=== PATIENT | female | born 1985 | race Caucasian/White ===

== ENCOUNTER 2024-06-05 18:11 | Outpatient (CLI) | payer MEDICARE, OTHER, SELFPAY ==
[2024-06-05 19:03] LABS: Basophils # 0.1 K/mm3 (0-0.2); Basophils % 0.6 % (0.1-2.0); Eosinophils # 0.1 K/mm3 (0.0-0.4); Eosinophils % 0.8 % (0.1-12.0); Hematocrit 40.7 % (37.0-47.0); Hemoglobin 13.5 g/dL (12.2-16.2); Lymphocytes # 2.3 K/mm3 (0.7-4.5); Lymphocytes % 27.7 % (10-50); Mean Corpuscular HGB Conc 33.2 g/dL (31.8-35.4); Mean Corpuscular Hemoglobin 32.7 pg (27.0-31.2); Mean Corpuscular Volume 98.5 fl (81-99); Monocytes # 0.4 K/mm3 (0.1-1.0); Neutrophils # 5.5 K/mm3 (1.8-7.8); Neutrophils % 65.8 % (37.0-80.0); Platelet Count 359 K/mm3 (142-424); Red Blood Count 4.13 M/mm3 (4.20-5.40); Red Cell Distribution Width 12.5 % (11.5-17.5); White Blood Count 8.4 K/mm3 (4.8-10.8)
[2024-06-05 20:39] LABS: Alanine Aminotransferase 49 U/L (12-78); Albumin Level 3.9 g/dl (3.5-5.0); Albumin/Globulin Ratio 1.4 (1.1-1.8); Alkaline Phosphatase 126 U/L (38-126); Anion Gap 14.5 mEq/L (5-15); Aspartate Amino Transferase 38 U/L (14-36); Bilirubin,Total 0.5 mg/dl (0.2-1.3); Blood Urea Nitrogen 27 mg/dl (7-17); Calcium 9.7 mg/dl (8.4-10.2); Carbon Dioxide 23 mmol/L (22.0-30.0); Chloride 105 mmol/L (98-107); Chol/HDL Ratio 4.3 (1-3.5); Cholesterol 162 mg/dl (140-200); Estimated Glomerular Filt Rate 79 ml/min (>60); GFR (African American) 96 ML/MIN (>60); Globulin 2.7 g/dL (1.3-3.2); Glucose 106 mg/dl (74-100); HDL Cholesterol 38 mg/dl (40-60); Potassium 3.5 mmoL/L (3.5-5.1); Sodium 139 mmol/L (136-145); Total Protein,Serum 6.6 g/dl (6.3-8.2); Triglycerides 170 mg/dl (30-150); VLDL Cholesterol 34 mg/dL (0-40)
[2024-06-05 20:47] LABS: HIV Combo NEGATIVE (Negative)
[2024-06-05 20:50] LABS: Direct LDL Cholesterol 89.17 mg/dL (100-129)
[2024-06-05 21:28] LABS: Vitamin B12 290 pg/mL (239-931)
[2024-06-05 22:10] LABS: Ferritin 175 ng/ml (6.24-137)
[2024-06-07 09:08] LABS: HCV Ab Non Reactive (Non Reactive)
== END 2024-06-05 23:59 | disposition home or self-care (01) ==
LOC: LAB.DROPOF 18:13
PROVIDERS: PCP Family Medicine; Visit Provider Family Medicine
DX: D64.9 Anemia, unspecified (principal); E78.5 Hyperlipidemia, unspecified; I10 Essential (primary) hypertension; Z87.891 Personal history of nicotine dependence; Z68.32 Body mass index [BMI] 32.0-32.9, adult; E66.9 Obesity, unspecified
CPT/HCPCS: 80053; 80061; 82607; 82728; 85025; 86803; 87389

== ENCOUNTER 2025-01-07 14:02 | Outpatient (CLI) | payer MEDICARE, OTHER, SELFPAY ==
[2025-01-07 19:50] LABS: Chloride 107 mmol/L (98-107)
[2025-01-07 19:51] LABS: Albumin Level 3.3 g/dl (3.5-5.0); Potassium 4.3 mmoL/L (3.5-5.1); Sodium 136 mmol/L (136-145)
[2025-01-07 19:54] LABS: Alanine Aminotransferase 22 U/L (12-78); Albumin/Globulin Ratio 0.9 (1.1-1.8); Alkaline Phosphatase 103 U/L (38-126); Anion Gap 10.3 mEq/L (5-15); Aspartate Amino Transferase 18 U/L (14-36); Bilirubin,Total 0.3 mg/dl (0.2-1.3); Calcium 9.2 mg/dl (8.4-10.2); Carbon Dioxide 23 mmol/L (22.0-30.0); Cholesterol 146 mg/dl (140-200); Globulin 3.6 g/dL (1.3-3.2); Glucose 111 mg/dl (74-100); HDL Cholesterol 47 mg/dl (40-60); Total Protein,Serum 6.9 g/dl (6.3-8.2); Triglycerides 104 mg/dl (30-150)
[2025-01-07 19:58] LABS: Blood Urea Nitrogen 18 mg/dl (7-17)
[2025-01-07 19:59] LABS: Creatinine,Serum 0.70 mg/dl (0.52-1.04); Estimated Glomerular Filt Rate 92 ml/min (>60); GFR (African American) 111 ML/MIN (>60)
== END 2025-01-07 23:59 | disposition home or self-care (01) ==
LOC: LAB.DROPOF 01-08 10:09
PROVIDERS: PCP Family Medicine; Visit Provider Family Medicine
DX: E78.5 Hyperlipidemia, unspecified (principal); I10 Essential (primary) hypertension
CPT/HCPCS: 80053; 80061

== ENCOUNTER 2025-01-18 10:04 | Outpatient (CLI) | payer MEDICARE, OTHER, SELFPAY ==
--- NOTE | 2025-01-18 10:04 | XR_ITS ---
FINAL REPORT CLINICAL HISTORY: knee pain COMPARISON: None FINDINGS: Four views of the right knee were obtained. There is no acute fracture or dislocation. The joint spaces are well preserved. There is no acute soft tissue abnormality. IMPRESSION: No acute abnormality identified. Reviewed, Interpreted and Dictated by Josefina Oliver MD Transcribed by Ruchi Tucker Authenticated and [facility]
== END 2025-01-18 23:59 ==
LOC: RAD 10:04
PROVIDERS: Visit Provider Physician Assistant
DX: M25.561 Pain in right knee (principal); M25.562 Pain in left knee
CPT/HCPCS: 73562

== ENCOUNTER 2025-01-20 03:02 | Emergency (ER) | payer MEDICARE, OTHER, SELFPAY ==
[2025-01-20 03:09] VITALS: BP 128/90; PULSE 70; RESP 14; TEMP 36.6; O2SAT 99; BMI 32.9
--- NOTE | 2025-01-20 03:12 | HMH.EDGENADL ---
Discharge Plan Disposition Patient Disposition: Home, Self-Care Prescriptions Prescriptions: No Action albuterol sulfate 90 mcg/actuation aerosol powdr breath activated 1 inh inhalation Q4-6H PRN (Reason: shortness of breath or wheezing) Qty: 3 1RF cyclobenzaprine 10 mg tablet 10 mg PO HS Qty: 90 1RF docusate sodium 100 mg capsule 100 mg PO DAILY Qty: 90 1RF hydrochlorothiazide 25 mg tablet 25 mg PO DAILY Qty: 90 1RF loratadine [Allergy Relief (loratadine)] 10 mg tablet,disintegrating 10 mg PO DAILY Qty: 90 1RF ondansetron 4 mg tablet,disintegrating 4 mg PO Q8H PRN (Reason: nausea) Qty: 30 2RF paroxetine HCl 20 mg tablet 20 mg PO DAILY Qty: 90 1RF propranolol 10 mg tablet 10 mg PO BID Qty: 180 1RF diclofenac sodium [Voltaren Arthritis Pain] 1 % gel 2 g topical QID Qty: 100 2RF Rx Instructions: apply to single elbow, wrist or hand; for hand includes palm/fingers/back of hand triamcinolone acetonide 0.5 % cream 1 applic topical BID Qty: 15 2RF Rx Instructions: apply bid prn to rash on forearms pravastatin 20 mg tablet 20 mg PO DAILY Qty: 90 1RF omeprazole 20 mg capsule,delayed release(DR/EC) 20 mg PO DAILY Qty: 90 1RF ciprofloxacin-hydrocortisone 0.2-1 % drops,suspension 3 drp otic (ear) BID Qty: 10 0RF acetic acid 2 % solution 3 drp otic (ear) Q6H Qty: 15 0RF Referrals Follow up/Referrals: Jeffery Birch MD [Primary Care Provider, Family Practice] - See instructions Activity Restrictions/Add. Instructions Additional Instructions/Restrictions: Please follow-up with your primary care provider. Please return to the emergency department if you develop any new or worsening symptoms or become concerned for your health. Clinical Impressions Clinical Impression: Fullness in left ear Print Language Print Language: Eritrean Discharge ED Provider: Ronaldo Sandoval General Adult HPI General Chief complaint: Ear Stated complaint: taking ear drops, ears clogged, minor bleeding Time Seen by Provider: 01/20/25 03:05 History of Present Illness HPI narrative: 40-year-old female with history of COPD, intellectual disability, hypertension hyperlipidemia presents for concerns about her left ear. She reports that she has used some drops that she has previously given and feels like her ear is clogged and full. She denies any fever. Reports no concerns with the other ear. Denies any recent infection. Symptoms started shortly prior to arrival. Related Data Previous Rx's ?Medication ?Instructions ?Recorded albuterol sulfate 90 mcg/actuation 1 inh inhalation Q4-6H PRN 07/07/24 breath activated powder inhaler shortness of breath or wheezing #3 ea cyclobenzaprine 10 mg tablet 10 mg PO HS #90 tabs 07/07/24 docusate sodium 100 mg capsule 100 mg PO DAILY #90 caps 07/07/24 hydrochlorothiazide 25 mg tablet 25 mg PO DAILY #90 tabs 07/07/24 loratadine 10 mg disintegrating 10 mg PO DAILY #90 tabs 07/07/24 tablet (Allergy Relief (loratadine)) ondansetron 4 mg disintegrating 4 mg PO Q8H PRN nausea #30 tabs 07/07/24 tablet paroxetine HCl 20 mg tablet 20 mg PO DAILY #90 tabs 07/07/24 propranolol 10 mg tablet 10 mg PO BID #180 tabs 07/07/24 pravastatin 20 mg tablet 20 mg PO DAILY #90 tabs 09/18/24 triamcinolone acetonide 0.5 % 1 applic topical BID #15 grams 01/07/25 topical cream ciprofloxacin 0.2 %-hydrocortisone 3 drp otic (ear) BID #10 mL 01/09/25 1 % ear drops,suspension omeprazole 20 mg capsule,delayed 20 mg PO DAILY #90 caps 01/09/25 release acetic acid 2 % ear solution 3 drp otic (ear) Q6H #15 mL 01/12/25 diclofenac sodium 1 % topical gel 2 g topical QID #100 grams 01/18/25 (Voltaren Arthritis Pain) Allergies Allergy/AdvReac Type Severity Reaction Status Date / Time aspirin Allergy Mild Verified 01/18/25 10:45 ibuprofen AdvReac Verified 01/18/25 10:45 [facility] Disclaimer: The information contained in this section may have been updated after the patient was seen, as this information can be updated by other users. Medical History Rash and nonspecific skin eruption Breast cancer screening by mammogram Dysuria GE reflux COPD (chronic obstructive pulmonary disease) Edentulous Right knee pain Mood disorder Anemia Intellectual disability Hyperlipidemia Hypertension Surgical History History of cholecystectomy H/O: hysterectomy Social History Smoking Status: Current every day smoker alcohol intake: never current occupational status: disabled Travel in the last 8 weeks?: None Other Medical History Have you received the Pneumonia Vaccine: No ROS Obtained: Yes All systems reviewed & no additional complaints except as documented Physical Exam General General appearance: alert and in no apparent distress Head Head exam: atraumatic and normocephalic Eye Eye exam: Present normal appearance, PERRL and EOMI ENT ENT exam: Present normal oropharynx, TM's normal bilaterally (Normal TMs and EACs bilaterally without obstructing earwax or signs of infection) and normal external ear exam Neck Neck exam: Present normal inspection and full ROM Chest Chest inspection: Present normal inspection and symmetric chest wall rise; Absent tenderness Respiratory Respiratory exam: Present normal lung sounds bilaterally; Absent respiratory distress Cardiovascular Cardiovascular exam: Present regular rate and normal rhythm Abdominal Exam Abdominal exam: Present soft; Absent distention, tenderness or guarding Extremities Exam Extremities exam: Present normal inspection; Absent edema or joint swelling Back Exam Back exam: Present normal inspection; Absent tenderness Neurological Exam Neurological exam: Present alert and oriented X3; Absent motor sensory deficit Psychiatric Psychiatric exam: Present normal affect and normal mood Skin Skin exam: Present warm, dry and normal color Lymphatic Lymphatic Findings: no adenopathy Medical Decision Making Medical Records Medical records reviewed: Yes I reviewed the patient's medical records. Screening: Per USPSTF and CDC recommendations, given the prevalence of disease in our region, it is our hospital?s policy to screen for HIV and viral Hepatitis for all patients aged 18 and over and those with ongoing risk factors. Caesar Inquiry Pt receiving controlled substance: No Caesar was queried for this patient: No Vital Signs: 01/20/25 03:09 01/20/25 03:15 Temperature 97.9 F 97.9 F Temperature Source Oral Pulse Rate 70 Pulse Rate [Left] 70 Respiratory Rate 14 14 Blood Pressure 128/90 Blood Pressure [Right Arm] 128/90 Blood Pressure Mean [Right Arm] 102 Blood Pressure Source Automatic Cuff Blood Pressure Source [Right Arm] Automatic Cuff Blood Pressure Position Sitting Blood Pressure Position [Right Arm] Sitting 02 Sat by Pulse Oximetry 99 Oxygen Delivery Method Room Air Room Air Lab Data Lab results reviewed: Yes I reviewed the patient's lab results. Medical Decision Narrative: 40-year-old female with history of intellectual disability, COPD, hypertension hyperlipidemia presents with concern for fullness in her left ear.. History was obtained via interactive discussion with patient, family. On arrival, patient is [afebrile, hemodynamically stable, satting appropriately, alert, oriented x4, GCS 15], moving all extremities spontaneously. Full physical exam performed and significant for clear TMs bilaterally, clear EACs bilaterally Differential includes but is not limited to otitis media, otitis externa, ear foreign body, impacted earwax. Patient's exam is completely benign. Low concern for emergent pathology at this time. Patient was discharged in stable condition with return precautions Procedures Risk/Benefits of Procedure(s) Were Explained: Yes Critical Care Critical Care Time Critical Care Time: No
[2025-01-20 03:15] VITALS: BP 128/90; PULSE 70; RESP 14; TEMP 36.6; O2SAT 99
== END 2025-01-20 03:16 | disposition home or self-care (01) ==
PROVIDERS: Emergency Provider Emergency Medicine; PCP Family Medicine
DX: H93.8X2 Other specified disorders of left ear (principal)
CPT/HCPCS: 99282

== ENCOUNTER 2025-02-02 15:39 | Emergency (ER) | payer MEDICARE, OTHER, SELFPAY ==
--- NOTE | 2025-02-02 16:10 | PC.NURSE ---
Notified by registration that patient was leaving to go to the [facility]
== END 2025-02-02 16:12 | disposition left against medical advice (07) ==
PROVIDERS: Emergency Provider Student in an Organized Health Care Education/Training Program; PCP Family Medicine
DX: Z53.21 Procedure and treatment not carried out due to patient leaving prior to being seen by health care provider (principal)
CPT/HCPCS: 99211

== ENCOUNTER 2025-02-22 13:47 | Outpatient (CLI) | payer MEDICARE, OTHER, SELFPAY ==
--- NOTE | 2025-02-22 13:48 | XR_ITS ---
FINAL REPORT CLINICAL HISTORY: right knee pain COMPARISON: None FINDINGS: 4 views of the right knee were obtained. There is no acute fracture or dislocation. The joint spaces are well preserved. There is no acute soft tissue abnormality. IMPRESSION: No acute abnormality identified. Reviewed, Interpreted and Dictated by Josefina Oliver MD Transcribed by Ruchi Tucker Authenticated and [facility]
== END 2025-02-22 23:59 | disposition home or self-care (01) ==
LOC: RAD 13:48
PROVIDERS: Visit Provider Physician Assistant
DX: M25.561 Pain in right knee (principal)
CPT/HCPCS: 73562

== ENCOUNTER 2025-03-03 13:18 | Outpatient (RCR) | payer MEDICARE, OTHER, SELFPAY | END 2025-03-03 23:59 | disposition home or self-care (01) | LOC: PT 13:18 | PROVIDERS: Visit Provider Physician Assistant | DX: M25.561 Pain in right knee (principal) | CPT/HCPCS: 97760 ==

== ENCOUNTER 2025-03-04 10:45 | Outpatient (CLI) | payer MEDICARE, OTHER, SELFPAY ==
--- NOTE | 2025-03-04 11:00 | MM_ITS ---
PROCEDURE INFORMATION: Exam: MG Bilateral Screening 3D Mammography Exam date and time: 03/04/2025 10:49 AM Age: 40 years old Clinical indication: Screening examination TECHNIQUE: Imaging protocol: Bilateral Screening tomosynthesis and 2D mammography including computer-aided detection (CAD) when performed. COMPARISON: No relevant prior studies available. FINDINGS: MAMMOGRAPHY: Breast composition: There are scattered areas of fibroglandular density. Mass: 1 cm questioned mass right breast roughly 11 o'clock middle depth. Architectural distortion: None. Calcifications: No suspicious calcifications. Asymmetric density: None. Skin thickening: None. Axillary adenopathy: None. IMPRESSION: Questioned right breast mass.Recommend right breast diagnostic mammogram including spot compression views of the right breast in the CC and MLO projections, a full 90 degree lateral view, and right breast ultrasound for further evaluation. ASSESSMENT: BI-RADS Category 0: Incomplete- Need Additional Imaging Evaluation.
== END 2025-03-04 23:59 | disposition home or self-care (01) ==
LOC: RAD 10:45
PROVIDERS: PCP Family Medicine; Visit Provider Family Medicine
DX: Z12.31 Encounter for screening mammogram for malignant neoplasm of breast (principal); R92.323 Mammographic fibroglandular density, bilateral breasts; R92.8 Other abnormal and inconclusive findings on diagnostic imaging of breast
CPT/HCPCS: 77063; 77067

== ENCOUNTER 2025-03-15 13:39 | Outpatient (CLI) | payer MEDICARE, OTHER, SELFPAY ==
--- NOTE | 2025-03-15 13:45 | MR_ITS ---
FINAL REPORT TECHNIQUE: Multiplanar and multisequence imaging the right knee was obtained without contrast. CLINICAL HISTORY: right knee pain, pops and cracks FINDINGS: Bones: There is no acute fracture or marrow edema. The joint space is preserved. There are no full thickness cartilage defects. Menisci: There is a ramp tear at the posterior horn of the medial meniscus with associated parameniscal cyst measuring 27 mm in axial dimension and 23 mm on coronal imaging. Anterior horn and lateral meniscus are intact. Ligaments: No cruciate or collateral ligament tear is present. Tendons/Muscles: The quadriceps and patellar tendons are within normal limits. The biceps femoris tendon and iliotibial tract are intact. The popliteus tendon is normal. Other: There is a very small amount of joint fluid which is likely physiologic. Remaining soft tissues are normal. IMPRESSION: Tear of the posterior horn of the medial meniscus with associated parameniscal cyst. Reviewed, Interpreted and Dictated by Vee Kunz MD Transcribed by Kirsten Dee Authenticated and [facility]
== END 2025-03-15 23:59 | disposition home or self-care (01) ==
LOC: RAD 13:40
PROVIDERS: PCP Family Medicine; Visit Provider Physician Assistant
DX: S83.241A Other tear of medial meniscus, current injury, right knee, initial encounter (principal); M25.861 Other specified joint disorders, right knee
CPT/HCPCS: 73721

== ENCOUNTER 2025-03-23 13:14 | Outpatient (CLI) | payer MEDICARE, OTHER, SELFPAY ==
--- NOTE | 2025-03-23 13:45 | MM_ITS ---
PROCEDURE INFORMATION: Exam: Right Diagnostic Breast Tomosynthesis Exam date and time: 03/23/2025 1:32 PM Age: 40 years old Clinical indication: Callback from screening for evaluation of a right breast mass. TECHNIQUE: Imaging protocol: Right Diagnostic tomosynthesis and 2D mammography including computer-aided detection (CAD) when performed. Unilateral or bilateral exam. COMPARISON: MG MM DIG SCREENING MAMM BI W/CAD 03/04/2025 10:49 AM FINDINGS: MAMMOGRAPHY: Breast composition: There are scattered areas of fibroglandular density. Breast mammogram findings: There is a persistent lobulated low-density ovoid 1 cm mass in the right breast approximate 11 o'clock axis, 7 cm from the nipple. No distortion or suspicious calcifications. IMPRESSION: Targeted ultrasound is recommended for the right breast mass, described above. ASSESSMENT: BI-RADS Category 0: Incomplete- Need Additional Imaging Evaluation.
--- NOTE | 2025-03-23 14:30 | US_ITS ---
PROCEDURE INFORMATION: Exam: US Right Breast, Complete Exam date and time: 03/23/2025 1:38 PM Age: 40 years old Clinical indication: Mass in the right breast. TECHNIQUE: Imaging protocol: Complete ultrasound of all four quadrants of the right breast and the retroareolar regions, including ultrasound of the axilla when performed. COMPARISON: MG MM DIG MAMM DX UNILAT RT CAD 03/23/2025 1:32 PM FINDINGS: ULTRASOUND: Breast ultrasound findings: Ultrasound of the right breast in the upper-outer quadrant demonstrates a hypoechoic solid oval mass with slightly indistinct margins that measures 0.8 x 0.4 x 0.7 cm, at 11 o'clock, 5 cm from the nipple. This correlates to the mammogram finding. The appearance of the margins makes it indeterminate. Ultrasound-guided needle biopsy is recommended. No axillary adenopathy. IMPRESSION: Mass in the right breast 11 o'clock axis, 5 cm from the nipple correlates to the mammogram finding. Ultrasound-guided needle biopsy is recommended as it is considered indeterminate. ASSESSMENT: BI-RADS Category 4: Suspicious.
== END 2025-03-23 23:59 | disposition home or self-care (01) ==
LOC: RAD 13:14
PROVIDERS: PCP Family Medicine; Visit Provider Family Medicine
DX: N63.11 Unspecified lump in the right breast, upper outer quadrant (principal); R92.321 Mammographic fibroglandular density, right breast
CPT/HCPCS: 76641; 77061; 77065; G0279

== ENCOUNTER 2025-04-02 10:16 | Outpatient (CLI) | payer MEDICARE, OTHER, SELFPAY ==
--- NOTE | 2025-04-02 10:21 | XR_ITS ---
FINAL REPORT TECHNIQUE: Right knee 4 views CLINICAL HISTORY: right knee pain COMPARISON: 02/22/2025 FINDINGS: RIGHT KNEE Four views show no evidence of an acute, displaced fracture or dislocation of the visualized bony architecture. The joint spaces appear normal. IMPRESSION: Unremarkable exam. Reviewed, Interpreted and Dictated by Josefina Oliver MD Transcribed by Ruby Simpson Authenticated and [facility]
--- OUTSIDE RECORDS SUMMARY | 2025-04-02 10:25 | XMS_ITS ---
Author Organization Unknown ENCOUNTERS Encounter Performer Location Date Diagnosis Diagnosis Status Pre Admit [address] [place] [address] [id number] Emergency [facility] [address] [place] [address] [id number] LWBS Pre Admit [place] [place] [address] [id number] Emergency [place] [place] [address] [id number] ALBERTO *Note: Encounters from your own facility or health system may be excluded. Allergies, Adverse Reactions, Alerts Allergen Type Severity Identification Date aspirin drug allergy 2 20250118 ibuprofen drug allergy 1 20250118 Medications Name Date Quantity Days Supplied GPI Number
== END 2025-04-02 23:59 | disposition home or self-care (01) ==
LOC: RAD 10:17
PROVIDERS: PCP Family Medicine; Visit Provider Orthopaedic Surgery
DX: M25.561 Pain in right knee (principal)
CPT/HCPCS: 73564

== ENCOUNTER 2025-04-05 08:26 | Outpatient (CLI) | payer MEDICARE, OTHER, SELFPAY ==
--- OUTSIDE RECORDS SUMMARY | 2025-04-05 08:36 | XMS_ITS ---
Author Organization Unknown ENCOUNTERS Encounter Performer Location Date Diagnosis Diagnosis Status Pre Admit [address] [place] [address] [id number] Emergency [address] [place] [place] [address] [id number] LWBS Pre Admit [place] [address] [place] [address] [id number] Emergency [address] [place] [address] [id number] ALBERTO *Note: Encounters from your own facility or health system may be excluded. Allergies, Adverse Reactions, Alerts Allergen Type Severity Identification Date aspirin drug allergy 2 20250118 ibuprofen drug allergy 1 20250118 Medications Name Date Quantity Days Supplied GPI Number
--- NOTE | 2025-04-05 09:00 | US_ITS ---
FINAL REPORT CLINICAL HISTORY: breast mass // rt breast // dr. tod voss / 1100 FINDINGS: ULTRASOUND-GUIDED RIGHT BREAST CORE BIOPSY TECHNIQUE: Limited images were obtained to localize region of interest. A lesion slightly greater than 1 cm was identified near the chest wall at 11:00. The right breast was prepped in a routine sterile fashion and locally anesthetized with 1% lidocaine. Standard written informed consent was obtained. The biopsy needle was positioned within the outer periphery of the lesion. A total of 3 passes were made with a 16 gauge core biopsy needle. A biopsy marker clip was deployed in satisfactory position. Postbiopsy mammogram showed postbiopsy changes with clip in satisfactory position. Procedure was well tolerated . CONCLUSION: 1. Technically successful ultrasound guided core biopsy of right breast lesion as above. 2. Biopsy marker clip deployed Authenticated and [facility]
--- NOTE | 2025-04-05 09:23 | MM_ITS ---
FINAL REPORT CLINICAL HISTORY: clip placement s/p biopsy FINDINGS: MAMMOGRAM RIGHT TECHNIQUE: Standard digital 2-D views COMPARISON: 03/04/2025 and 03/23/2025 DENSITY: There are scattered areas of fibroglandular density FINDINGS: Post biopsy marker clip is noted to be in satisfactory position. Actually 2 clips are seen. 2 clips were deployed because of concern the initial clip may not have deployed. Postbiopsy changes are noted. IMPRESSION: Biopsy marker clip in good position ASSESSMENT: A post-procedure mammogram is used to confirm the position and deployment of a breast tissue marker after a biopsy RECOMMENDATION: Pending histopathology evaluation Authenticated and [facility]
== END 2025-04-05 23:59 | disposition home or self-care (01) ==
LOC: RAD 08:27
PROVIDERS: PCP Family Medicine; Visit Provider Family Medicine
DX: R92.8 Other abnormal and inconclusive findings on diagnostic imaging of breast (principal); N63.10 Unspecified lump in the right breast, unspecified quadrant
CPT/HCPCS: 19083; 77065; A4648

== ENCOUNTER 2025-04-08 09:55 | Emergency (ER) | payer MEDICARE, OTHER, SELFPAY ==
[2025-04-08 09:53] VITALS: BP 121/76; PULSE 75; RESP 18; TEMP 37.1; O2SAT 99; BMI 34.0
--- NOTE | 2025-04-08 10:17 | ED_ITS ---
<Statement entered by Williams Mathur MD - 04/08/25 14:54> I was consulted by the SHONDA, and we discussed the complexity of the problems being addressed. I approve the treatment and management plan for this patient's care in the emergency department, thus performing a substantive portion of the medical decision making. Williams Mathur MD Discharge Plan Disposition Patient Disposition: Home, Self-Care Prescriptions Prescriptions: No Action albuterol sulfate 90 mcg/actuation aerosol powdr breath activated 1 inh inhalation Q4-6H PRN (Reason: shortness of breath or wheezing) Qty: 3 1RF docusate sodium 100 mg capsule 100 mg PO DAILY Qty: 90 1RF loratadine [Allergy Relief (loratadine)] 10 mg tablet,disintegrating 10 mg PO DAILY Qty: 90 1RF ondansetron 4 mg tablet,disintegrating 4 mg PO Q8H PRN (Reason: nausea) Qty: 30 2RF nystatin 100,000 unit/gram cream 1 applic topical TID Qty: 30 0RF Rx Instructions: apply to rash under both breasts as directed triamcinolone acetonide 0.5 % cream 1 applic topical BID Qty: 15 2RF Rx Instructions: apply bid prn to rash on forearms ciprofloxacin-hydrocortisone 0.2-1 % drops,suspension 3 drp otic (ear) BID Qty: 10 0RF paroxetine HCl 20 mg tablet See Rx Instructions .ROUTE .COMPLEX Qty: 90 0RF Dose Instruction: TAKE 1 TABLET BY MOUTH ONCE DAILY Rx Instructions: TAKE 1 TABLET BY MOUTH ONCE DAILY propranolol 10 mg tablet See Rx Instructions .ROUTE .COMPLEX Qty: 180 0RF Dose Instruction: TAKE 1 TABLET BY MOUTH TWICE DAILY Rx Instructions: TAKE 1 TABLET BY MOUTH TWICE DAILY cyclobenzaprine 10 mg tablet See Rx Instructions .ROUTE .COMPLEX Qty: 90 0RF Dose Instruction: TAKE 1 TABLET BY MOUTH AT BEDTIME NIGHTLY Rx Instructions: TAKE 1 TABLET BY MOUTH AT BEDTIME NIGHTLY omeprazole 20 mg capsule,delayed release(DR/EC) See Rx Instructions .ROUTE .COMPLEX Qty: 90 0RF Dose Instruction: TAKE 1 CAPSULE BY MOUTH ONCE DAILY Rx Instructions: TAKE 1 CAPSULE BY MOUTH ONCE DAILY hydrochlorothiazide 25 mg tablet See Rx Instructions .ROUTE .COMPLEX Qty: 90 0RF Dose Instruction: TAKE 1 TABLET BY MOUTH ONCE DAILY Rx Instructions: TAKE 1 TABLET BY MOUTH ONCE DAILY pravastatin 20 mg tablet See Rx Instructions .ROUTE .COMPLEX Qty: 90 0RF Dose Instruction: TAKE 1 TABLET BY MOUTH ONCE DAILY Rx Instructions: TAKE 1 TABLET BY MOUTH ONCE DAILY Referrals Follow up/Referrals: Jeffery Birch MD [Primary Care Provider, Family Practice] - See instructions Activity Restrictions/Add. Instructions Additional Instructions/Restrictions: Wash with Hibiclens, the red soap that was given to you at the hospital daily. Do this until the wound heals. If you develop fevers or chills please return to the ED or see your doctor. Clinical Impressions Clinical Impression: Postoperative wound breakdown Instructions Patient Instructions: How to Care for a Surgical Wound Print Language Print Language: Citizen Of [place] Discharge ED Provider: Williams Mathur General Adult HPI General Chief complaint: Wound/Laceration Stated complaint: possible surgical site infection Time Seen by Provider: 04/08/25 10:00 Mode of Arrival: EMS Source of Information: Patient and EMS Description of Symptoms (Recalled from ER Triage Doc. by RN): EMS was called out for pt having concerns for an infection to her right breast biopsy site. pt had a biopsy done on her right breast 2 days ago and has surgical tape placed on the incision site. No drainage or redness noted to the incision site. Denies fevers. pt states that she has had some episodes of nausea since last night. History of Present Illness HPI narrative: 40-year-old female presents to the ED today for complaint of possible infection in her right breast. She had a biopsy done recently and had Steri-Strips placed on it. No drainage or redness noticed at the site. Denies fevers or chills. Patient did have nausea once. No other symptoms Related Data Previous Rx's ?Medication ?Instructions ?Recorded albuterol sulfate 90 mcg/actuation 1 inh inhalation Q4 -6H PRN 07/07/24 breath activated powder inhaler shortness of breath or wheezing #3 ea docusate sodium 100 mg capsule 100 mg PO DAILY #90 cap s 07/07/24 loratadine 10 mg disintegrating 10 mg PO DAILY #90 tab s 07/07/24 tablet (Allergy Relief (loratadine)) ondansetron 4 mg disintegrating 4 mg PO Q8H PRN nausea #30 tabs 07/07/24 tablet triamcinolone acetonide 0.5 % 1 applic topical BID #15 grams 01/07/25 topical cream ciprofloxacin 0.2 %-hydrocortisone 3 drp otic (ear) BI D #10 mL 01/09/25 1 % ear drops,suspension nystatin 100,000 unit/gram topical 1 applic topical TI D #30 grams 02/02/25 cream cyclobenzaprine 10 mg tablet See Rx Instructions .Rout e 03/08/25 .COMPLEX #90 tabs hydrochlorothiazide 25 mg tablet See Rx Instructions . Route 03/08/25 .COMPLEX #90 tabs omeprazole 20 mg capsule,delayed See Rx Instructions . Route 03/08/25 release .COMPLEX #90 caps paroxetine HCl 20 mg tablet See Rx Instructions .Route 03/08/25 .COMPLEX #90 tabs pravastatin 20 mg tablet See Rx Instructions .Route 0 03/08/25 .COMPLEX #90 tabs propranolol 10 mg tablet See Rx Instructions .Route 0 03/08/25 .COMPLEX #180 tabs Allergies Allergy/AdvReac Type Severity Reaction Status Date / Time aspirin Allergy Mild Unknown Verified 03/22/25 13:03 allergy reaction ibuprofen AdvReac Unknown Verified 03/22/25 13:03 allergy reaction PFSH PFS Disclaimer: The information contained in this section may have been updated after the patient was seen, as this information can be updated by other users. Medical History Breast mass, right Abnormal mammogram of right breast Skin yeast infection Rash and nonspecific skin eruption Breast cancer screening by mammogram Dysuria GE reflux COPD (chronic obstructive pulmonary disease) Edentulous Right knee pain Mood disorder Anemia Intellectual disability Hyperlipidemia Hypertension Surgical History History of cholecystectomy H/O: hysterectomy Social History Smoking Status: Current every day smoker alcohol intake: never current occupational status: disabled Travel in the last 8 weeks?: None Have you lived/traveled outside US in past 30 days?: No Contact w/someone who lives/traveled outside US past 30 days?: No Exposure to someone with infectious disease in past 14 days?: No Do you have a fever (greater than 100.4 F or 38 C)?: No Have you tested positive for COVID-19?: No Exposed to someone with COVID-19 in past 14 days?: No Do you have a sore throat?: No Do you have a cough?: No Do you have any weakness?: No Do you have any diarrhea?: No Are you experiencing any unusual bleeding?: No Do you have any muscle aches/pain?: No Do you have any abdominal pain?: No Are you experiencing loss of taste or smell?: No Other Medical History Have you received the Pneumonia Vaccine: No ROS Obtained: Yes Systems reviewed as appropriate & no additional complaints except as documented Constitutional Constitutional: Reports as per HPI Physical Exam General General appearance: alert Head Head exam: normocephalic Eye Eye exam: Present PERRL and EOMI ENT ENT exam: Present normal oropharynx and mucous membranes moist Neck Neck exam: Present full ROM and trachea midline Respiratory Respiratory exam: Present normal lung sounds bilaterally Cardiovascular Cardiovascular exam: Present regular rate, normal rhythm, normal heart sounds, +S1 and +S2 Extremities Exam Extremities exam: Present full ROM and normal capillary refill Neurological Exam Neurological exam: Present alert and oriented X3 Skin Skin exam: Present warm, dry and other (Biopsy site appears uninfected, removed the Steri-Strips cleaned with soap and water and reapplied the new Steri- Strips.) Medical Decision Making Medical Records Screening: Per USPSTF and CDC recommendations, given the prevalence of disease in our region, it is our hospital?s policy to screen for HIV and viral Hepatitis for all patients aged 18 and over and those with ongoing risk factors. Caesar Inquiry Pt receiving controlled substance: No Caesar was queried for this patient: No Vital Signs: 04/08/25 09:53 04/08/25 09:53 04/08/25 10:27 Temperature 98.8 F 98.8 F 98.8 F Temperature Source Oral Oral Pulse Rate 75 79 Pulse Rate [Right] 75 Respiratory Rate 18 18 18 Blood Pressure 121/76 119/77 Blood Pressure [Right Arm] 121/76 Blood Pressure Mean [Right Arm] 91 Blood Pressure Source Automatic Cuff Blood Pressure Source [Right Arm] Automatic Cuff Blood Pressure Position Supine Blood Pressure Position [Right Arm] Supine 02 Sat by Pulse Oximetry 99 99 Oxygen Delivery Method Room Air Room Air Orders (Tests/Meds): ORDERS Category Date Time Status HIV Combo Stat Lab 04/08/25 10:09 Ordered Hepatitis C Ab Qual. W/ RFX Stat Lab 04/08/25 10:09 Ordered Medical Decision Narrative: patient is a 40-year-old female presenting to the emergency department for evaluation of breast biopsy site. Patient is hemodynamically stable and nontoxic-appearing upon arrival, afebrile. Differential diagnosis includes wound from biopsy site infection versus not infected. Workup considered but not necessary today. Wash the biopsy site with soap and water and redressed the site with Steri-Strips. Patient safe for discharge home. Critical Care Critical Care Time Critical Care Time: No
[2025-04-08 10:27] VITALS: BP 119/77; PULSE 79; RESP 18; TEMP 37.1; O2SAT 99
== END 2025-04-08 10:36 | disposition home or self-care (01) ==
PROVIDERS: Emergency Provider Student in an Organized Health Care Education/Training Program; PCP Family Medicine
DX: T81.31XA Disruption of external operation (surgical) wound, not elsewhere classified, initial encounter (principal); N63.10 Unspecified lump in the right breast, unspecified quadrant; F17.210 Nicotine dependence, cigarettes, uncomplicated
CPT/HCPCS: 99282; 99283

== ENCOUNTER 2025-04-09 12:12 | Outpatient (CLI) | payer MEDICARE, OTHER, SELFPAY ==
--- NOTE | 2025-04-09 13:01 | XR_ITS ---
FINAL REPORT CLINICAL HISTORY: SOB COMPARISON: None FINDINGS: The heart size is normal. The mediastinum is normal. There is no focal infiltrate or edema. There are no pleural effusions. There is no pneumothorax. There is no osseous abnormality. IMPRESSION: No acute cardiopulmonary process Reviewed, Interpreted and Dictated by Yoni Andre MD Transcribed by Ruchi Tucker Authenticated and [facility]
== END 2025-04-09 23:59 | disposition home or self-care (01) ==
LOC: PREOP 12:13
PROVIDERS: PCP Family Medicine; Visit Provider Orthopaedic Surgery
DX: Z01.811 Encounter for preprocedural respiratory examination (principal); R06.02 Shortness of breath
CPT/HCPCS: 71046

== ENCOUNTER 2025-04-13 06:05 | Day surgery (SDC) | payer MEDICARE, OTHER, SELFPAY ==
[2025-04-09 09:14] VITALS: BMI 33.3
--- NOTE | 2025-04-09 12:34 | ECG_ITS ---
APPROVED REPORT Exam: Resting ECG HR:67 bpm ECG Measurements Heart Rate 67 AXES CO 176 P 63 QRSd 85 QRS -22 QT 397 T 19 QTc 413 Conclusion SINUS RHYTHM LOW QRS VOLTAGE IN PRECORDIAL LEADS [QRS DEFLECTION < 1.0 mV IN CHEST LEADS] POSSIBLE RIGHT VENTRICULAR CONDUCTION DELAY [RSR (QR) IN V1/V2] POSSIBLE ANTERIOR MYOCARDIAL INFARCTION , PROBABLY OLD [30 ms Q WAVE IN V3/V4, OR R < 0.2 mV IN V4] BORDERLINE ECG UNCONFIRMED REPORT Electronically signed by : Jeffery Schmid MD 04/12/2025 08:42:40
[2025-04-09 12:49] VITALS: BMI 33.3
[2025-04-09 12:59] LABS: Hematocrit 36.3 % (37.0-47.0); Hemoglobin 12.5 g/dL (12.2-16.2); Immature Granulocytes % 0.2 %; Mean Corpuscular HGB Conc 34.4 g/dL (31.8-35.4); Mean Corpuscular Hemoglobin 34.2 pg (27.0-31.2); Mean Corpuscular Volume 99.2 fl (81-99); Nucleated Red Blood Cells % 0 %; Platelet Count 330 K/mm3 (142-424); Red Blood Count 3.66 M/mm3 (4.20-5.40); Red Cell Distribution Width-SD 45.7 fL; White Blood Count 5.7 K/mm3 (4.8-10.8)
[2025-04-09 13:07] LABS: Anion Gap 10.2 mEq/L (5-15); Blood Urea Nitrogen 20 mg/dl (7-17); Calcium 9.1 mg/dl (8.4-10.2); Carbon Dioxide 21 mmol/L (22.0-30.0); Chloride 109 mmol/L (98-107); Creatinine Clearance Estimated 127 mL/min (50-200); Creatinine,Serum 0.80 mg/dl (0.52-1.04); Estimated Glomerular Filt Rate 79 ml/min (>60); GFR (African American) 95 ML/MIN (>60); Glucose 121 mg/dl (74-100); Potassium 4.2 mmoL/L (3.5-5.1); Sodium 136 mmol/L (136-145)
[2025-04-13] VITALS (11 sets, daily range): BP systolic 107–123; BP diastolic 60–80; PULSE 58–77; RESP 12–18; TEMP 36.2–38; O2SAT 91–100; BMI 33.3
[2025-04-13] MEDS: LACTATED RINGERS 1000ML 1,000 ML 100 ML IV (06:33)
--- NOTE | 2025-04-13 07:15 | EXP.ANES.CKL ---
[facility] Disclaimer: The information contained in this section may have been updated after the patient was seen, as this information can be updated by other users. Medical History Breast mass, right Abnormal mammogram of right breast Skin yeast infection Rash and nonspecific skin eruption Breast cancer screening by mammogram Dysuria GE reflux COPD (chronic obstructive pulmonary disease) Edentulous Right knee pain Mood disorder Anemia Intellectual disability Hyperlipidemia Hypertension Surgical History History of cholecystectomy H/O: hysterectomy Family History Other Family history of cancer Family history of diabetes mellitus type II Family history of hypertension Social History (Updated 04/13/25 @ 06:23 by Isabella Carpenter RN) Smoking Status: Current every day smoker alcohol intake: never substance use type: denies use current occupational status: disabled Travel in the last 8 weeks?: None [facility] Anesthesia Checklist Patient Identification Patient Identification: Arm Band and Verbal (Name & ) Structural Data Admitted From: Home Planned Operative Procedure/s: right knee arthroscopy Consent for Planned Operative Procedure(s) Verified: Yes Verified Documents: Surgical Consent NPO Status Verified Time NPO: 00:00 Chart Verification Results Verified: ECG Additional verifications Patient : No Anesthesia Reactions: No Airway Assessment Mallampati Score:: Class II C-Spine Mobility Assessed: Yes TMJ Mobility Assessed: Yes Dentition: Edentulous Neurological Assessment Level of Consciousness: Awake, Alert and Appropriate Hx Seizures: No Numbness or tingling in extremities: No Anesthesia Plan Anesthesia Risk discussed: Yes Anesthesia Plan: Verified ASA Class: II Anesthesia Type: General w/block
[2025-04-13] MEDS: CEFAZOLIN 2GM VIAL 2 GM (07:57)
[2025-04-13] MEDS: BUPIVACAINE 0.25% 30ML VIAL 75 MG (07:58)
[2025-04-13] MEDS: 0.9 % SODIUM CHLORIDE 100 ML 200 ML IV (07:58)
[2025-04-13] MEDS: RINGERS SOLUTION,LACTATED 6,000 ML 1000 ML IR (07:59)
--- NOTE | 2025-04-13 08:35 | EXP.ANES.I ---
[facility] Anesthesia Record Part I Anesthesia Record I Intake, IV Amount: 600 Hydration: Adequate Estimated blood loss (mL): 0 Urine output (mL): 0 Blood Products used (#): none Blood Pressure: 121/60 SaO2: 91 Pulse Rate: 60 Airway Patency: Patent Respiratory Rate: 12 Temperature: 98.6 F Patient is:: Nasal O2, Oral/Nasal airway, Stable and Somnolent Stable to PACU at:: 08:32
--- NOTE | 2025-04-13 08:40 | P.OP_ITS ---
Date of procedure: 04/13/25 Pre-op Diagnosis:: Right knee posterior horn medial meniscus tear Post-op Diagnosis:: Same Procedure performed:: Right knee arthroscopy with medial meniscal repair (08654) Surgeon:: Jeronimo Mcdermott DO Feeder Tender(s):: Herber PERALTA UNIFIED COMMUNICATIONS ENGINEER:: King Baig Anesthesia: GETA Estimated blood loss (mL): 0 Operative findings:: Ramp tear posterior horn medial meniscus Operative note:: Patient identified preoperatively. Right knee marked yes my initials. Patient taken the operating room placed upon operating bed. General anesthesia administered airway secured. Right lower extremity prepped and draped within the knee ayala. Once prepped and draped final operative timeout performed to identify proper patient procedure and extremity. Everyone involved in the case agreed. There is no counter indication to beginning. Did receive preoperative antibiotics. Marking pen was used to maite the planned portal sites of the knee. Esmarch was used to exsanguinate the extremity pneumatic tourniquet inflated to 300 mmHg. Skin knife was used to incise standard anterior lateral portal blunt with trocar was placed in the patellofemoral joint exchange with a camera. I swept directly into the medial joint line where 18-gauge spinal needle was utilized for the proper placement of the anterior medial portal which gave direct access to the posterior horn of the meniscus without convergence or divergence and parallel to the tibial plateau. Once this was established a probe was placed. There is a ramp tear of the posterior horn of the medial meniscus. Suction was placed on this area to rupture the parameniscal cyst. The root of the meniscus was interrogated and intact. The anterior horn and body of the meniscus intact. The ramp tear was evident via a probe at the posterior horn therefore decision was made for meniscal repair. The nova stitch pro device was open. It was loaded with an 0 suture. The device was then placed around the meniscal tear where the ramp tear was present the most posterior pass was placed followed by a pass anteriorly on the meniscus anterior to the tear and arthroscopic knot was tied for a circumferential c ompression stitch around the ramp tear at this process and then was repeated again more laterally the first pass and also arthroscopic knot was tied and repair was performed. Probe was then placed to confirm good repair and compression. Once this was confirmed attention is brought the intercondylar notch to the ACL was seen and intact attention was brought to the lateral joint line the lateral meniscus was intact lateral cartilage is intact scope into the medial lateral gutters and back in the patellofemoral joint no further pathology was seen. Camera was removed the joint was drained. Local anesthesia infiltrated the portal sites skin closed with nylon stitch sterile dressing placed from toe to thigh. Patient replaced and T ROM brace locked in extension every recovery room. Condition: stable Disposition: PACU Complications:: None apparent
[2025-04-13] MEDS: MORPHINE 2MG/ML SYRINGE 2 MG IV ×2 (08:47→09:00)
--- NOTE | 2025-04-13 09:55 | SUR.PHASEI ---
0850- PT at bedside to fit and apply T-ROM brace. 0902- patient VSS and pain is tolerable. trasported via stretcher to post op. Detailed report given to Alba Baca RN. polar pack in stretcher with patient.
--- NOTE | 2025-04-13 11:28 | P.PNANES_ITS ---
[facility] Anesthesia Record Part II Anesthesia Record Part II Discharge Time: 09:42 Destination: Surgical Day Care (OP Surgery) PACU nurse assessment reviewed?: Yes Patient Condition:: Good Anesthesia Complications:: None Swallowing reflex intact?: Yes Airway Patency: Patent Cyanosis?: No Blood Pressure: 107/80 SaO2: 100 Respiratory Rate: 16 Pulse Rate: 73 Temperature: 97.1 F Mental Status: Alert & Oriented Pain level:: 0 Nausea and/or vomitting:: None Intake, IV Amount: 0 Hydration: Adequate
== END 2025-04-13 09:50 | disposition home or self-care (01) ==
PROVIDERS: PCP Family Medicine; Visit Provider Orthopaedic Surgery
PROC: (CPT 29870; principal; 2025-04-13 07:30)
DX: S83.231A Complex tear of medial meniscus, current injury, right knee, initial encounter (principal); M23.021 Cystic meniscus, posterior horn of medial meniscus, right knee; I10 Essential (primary) hypertension; J44.9 Chronic obstructive pulmonary disease, unspecified; E78.5 Hyperlipidemia, unspecified; D64.9 Anemia, unspecified; F39 Unspecified mood [affective] disorder; K21.9 Gastro-esophageal reflux disease without esophagitis; Z88.5 Allergy status to narcotic agent; Z88.6 Allergy status to analgesic agent; Z79.899 Other long term (current) drug therapy; F17.200 Nicotine dependence, unspecified, uncomplicated; X58.XXXA Exposure to other specified factors, initial encounter
CPT/HCPCS: 29882; 80048; 85025; 93005; 97760; J0665; J0690; J1100; J2003; J2250; J2270; J2405; J2704; J3010; J7120

== ENCOUNTER 2025-05-27 02:57 | Emergency (ER) | payer MEDICARE, OTHER, SELFPAY ==
[2025-05-27] VITALS (10 sets, daily range): BP systolic 103–130; BP diastolic 65–106; PULSE 83–103; RESP 12–24; TEMP 36.7–36.8; O2SAT 95–98; BMI 34.0
--- NOTE | 2025-05-27 03:03 | ECG_ITS ---
APPROVED REPORT Exam: Resting ECG HR:96 bpm ECG Measurements Heart Rate 96 AXES HI 156 P 68 QRSd 92 QRS -5 QT 360 T 56 QTc 413 Conclusion SINUS RHYTHM LOW QRS VOLTAGE IN PRECORDIAL LEADS [QRS DEFLECTION < 1.0 mV IN CHEST LEADS] BORDERLINE ECG UNCONFIRMED REPORT Electronically signed by : AMANDA RAMOS, 05/28/2025 06:58:31
[2025-05-27] MEDS: ACETAMINOPHEN 500MG TAB 1000 MG PO (03:25)
--- NOTE | 2025-05-27 03:38 | XR_ITS ---
PROCEDURE INFORMATION: Exam: XR Chest Exam date and time: 05/27/2025 3:40 AM Age: 40 years old Clinical indication: Pain; Chest pressure; Additional info: Chest pain TECHNIQUE: Imaging protocol: Radiologic exam of the chest. Views: 1 view. COMPARISON: CR XR CHEST 2V 04/09/2025 1:07 PM FINDINGS: Lungs: Bibasilar atelectasis.. No consolidation. Pleural spaces: Unremarkable. No pleural effusion. No pneumothorax. Heart/Mediastinum: Unremarkable. No cardiomegaly. Bones/joints: Unremarkable. IMPRESSION: No acute findings.
--- OUTSIDE RECORDS SUMMARY | 2025-05-27 03:44 | XMS_ITS ---
Author Organization Unknown ENCOUNTERS Encounter Performer Location Date Diagnosis Diagnosis Status Emergency [place] [id number] [place] [address] [id number] Pre Admit [place] [address] [id number] Emergency [place] [address] [place] [address] [id number] ALBERTO Pre Admit [place] [address] [id number] Pre Admit [place] [address] [place] [address] [id number] Emergency [place] [address] [place] [address] [id number] LWBS Pre Admit [place] [address] [place] [address] [id number] Emergency [place] [address] [id number] ALBERTO *Note: Encounters from your own facility or health system may be excluded. Allergies, Adverse Reactions, Alerts Allergen Type Severity Identification Date aspirin drug allergy 2 [id number] ibuprofen drug allergy 1 [id number] Medications Name Date Quantity Days Supplied GPI Number
[2025-05-27 03:46] LABS: Hematocrit 38.5 % (37.0-47.0); Hemoglobin 13.3 g/dL (12.2-16.2); Immature Granulocytes % 0.2 %; Mean Corpuscular HGB Conc 34.5 g/dL (31.8-35.4); Mean Corpuscular Hemoglobin 33.4 pg (27.0-31.2); Mean Corpuscular Volume 96.7 fl (81-99); Nucleated Red Blood Cells % 0 %; Platelet Count 331 K/mm3 (142-424); Red Blood Count 3.98 M/mm3 (4.20-5.40); Red Cell Distribution Width-SD 44.5 fL; White Blood Count 9.0 K/mm3 (4.8-10.8)
[2025-05-27 03:55] LABS: Alanine Aminotransferase 37 U/L (12-78); Albumin Level 4.4 g/dl (3.5-5.0); Albumin/Globulin Ratio 1.3 (1.1-1.8); Alkaline Phosphatase 96 U/L (38-126); Anion Gap 11.0 mEq/L (5-15); Aspartate Amino Transferase 30 U/L (14-36); Bilirubin,Total 0.4 mg/dl (0.2-1.3); Blood Urea Nitrogen 26 mg/dl (7-17); Calcium 9.6 mg/dl (8.4-10.2); Carbon Dioxide 21 mmol/L (22.0-30.0); Chloride 109 mmol/L (98-107); Creatinine Clearance Estimated 115 mL/min (50-200); Creatinine,Serum 0.90 mg/dl (0.52-1.04); Estimated Glomerular Filt Rate 69 ml/min (>60); GFR (African American) 83 ML/MIN (>60); Globulin 3.4 g/dL (1.3-3.2); Glucose 142 mg/dl (74-100); Potassium 4.0 mmoL/L (3.5-5.1); Sodium 137 mmol/L (136-145); Total Protein,Serum 7.8 g/dl (6.3-8.2)
[2025-05-27 03:59] LABS: Activated Partial Thrombo Time 26.6 seconds (22.8-30.6); INR 0.92 (0.9-1.1); Prothrombin Time 10.3 seconds (10.1-12.5)
[2025-05-27 04:12] LABS: D-Dimer 0.40 ug/mL (0.0-0.5)
[2025-05-27 04:14] LABS: Troponin I < 0.01 ng/ml (0.00-0.034)
--- NOTE | 2025-05-27 06:14 | HMH.EDGENADL ---
Discharge Plan Disposition Patient Disposition: Home, Self-Care Condition: Fair Prescriptions Prescriptions: No Action albuterol sulfate 90 mcg/actuation aerosol powdr breath activated 1 inh inhalation Q4-6H PRN (Reason: shortness of breath or wheezing) Qty: 3 1RF docusate sodium 100 mg capsule 100 mg PO DAILY Qty: 90 1RF loratadine [Allergy Relief (loratadine)] 10 mg tablet,disintegrating 10 mg PO DAILY Qty: 90 1RF [place] Saline Gel 1 applic topical Q1-2H PRN (Reason: dry nasal passages) Qty: 14.1 0RF Rx Instructions: while awake fluconazole 150 mg tablet 150 mg PO Q3D Qty: 2 0RF celecoxib 100 mg capsule 100 mg PO BID Qty: 60 2RF paroxetine HCl 20 mg tablet See Rx Instructions .ROUTE .COMPLEX Qty: 90 0RF Dose Instruction: TAKE 1 TABLET BY MOUTH ONCE DAILY Rx Instructions: TAKE 1 TABLET BY MOUTH ONCE DAILY propranolol 10 mg tablet See Rx Instructions .ROUTE .COMPLEX Qty: 180 0RF Dose Instruction: TAKE 1 TABLET BY MOUTH TWICE DAILY Rx Instructions: TAKE 1 TABLET BY MOUTH TWICE DAILY cyclobenzaprine 10 mg tablet See Rx Instructions .ROUTE .COMPLEX Qty: 90 0RF Dose Instruction: TAKE 1 TABLET BY MOUTH AT BEDTIME NIGHTLY Rx Instructions: TAKE 1 TABLET BY MOUTH AT BEDTIME NIGHTLY hydrochlorothiazide 25 mg tablet See Rx Instructions .ROUTE .COMPLEX Qty: 90 0RF Dose Instruction: TAKE 1 TABLET BY MOUTH ONCE DAILY Rx Instructions: TAKE 1 TABLET BY MOUTH ONCE DAILY pravastatin 20 mg tablet See Rx Instructions .ROUTE .COMPLEX Qty: 90 0RF Dose Instruction: TAKE 1 TABLET BY MOUTH ONCE DAILY Rx Instructions: TAKE 1 TABLET BY MOUTH ONCE DAILY ondansetron 4 mg tablet,disintegrating See Rx Instructions .ROUTE .COMPLEX Qty: 30 0RF Dose Instruction: TAKE ONE (1) TABLET ORALLY EVERY 8 HOURS NEEDED FOR NAUSEA Rx Instructions: TAKE ONE (1) TABLET ORALLY EVERY 8 HOURS NEEDED FOR NAUSEA omeprazole 20 mg capsule,delayed release(DR/EC) See Rx Instructions .ROUTE .COMPLEX Qty: 90 0RF Dose Instruction: TAKE ONE (1) CAPSULE BY MOUTH ONCE DAILY Rx Instructions: TAKE ONE (1) CAPSULE BY MOUTH ONCE DAILY fluticasone propionate [Allergy Relief (fluticasone)] 50 mcg/actuation spray,suspension 1 spray intranasal BID Qty: 16 2RF Rx Instructions: administer into each nostril 2x/day amoxicillin-pot clavulanate 875-125 mg tablet 1 tab PO BID Qty: 14 0RF Referrals Follow up/Referrals: Jeffery Birch MD [Primary Care Provider, Family Practice] - See instructions Clinical Impressions Clinical Impression: Chest pain Print Language Print Language: Venezuelan Discharge ED Provider: Ronaldo Sandoval General Adult HPI <Ronaldo Sandoval MD - Last Filed: 05/27/25 06:59> General Chief complaint: Shortness of Breath/Dyspnea Stated complaint: Cough, shortness of air, chest pain Time Seen by Provider: 05/27/25 03:00 Mode of Arrival: EMS Source of Information: Patient Description of Symptoms (Recalled from ER Triage Doc. by RN): Patient presents to ER via [facility]. Called to residence for patient complaint of cough, shortness of breath with exertion and chest tightness that started this morning. Patient recently diagnosed with a sinus infection and reports taking 2 rounds of antibiotics without any improvement. History of Present Illness HPI narrative: 40-year-old female with history of COPD, hypertension, hyperlipidemia presents for multiple complaints. She has been feeling generally unwell, tonight started having some cough, shortness of breath and chest pain. She reports that she had a sinus infection recently and has taken a couple of rounds of antibiotics without significant improvement. Related Data Previous Rx's ?Medication ?Instructions ?Recorded albuterol sulfate 90 mcg/actuation 1 inh inhalation Q4-6H PRN 07/07/24 breath activated powder inhaler shortness of breath or wheezing #3 ea docusate sodium 100 mg capsule 100 mg PO DAILY #90 caps 07/07/24 loratadine 10 mg disintegrating 10 mg PO DAILY #90 tabs 07/07/24 tablet (Allergy Relief (loratadine)) cyclobenzaprine 10 mg tablet See Rx Instructions .Route 03/08/25 .COMPLEX #90 tabs hydrochlorothiazide 25 mg tablet See Rx Instructions .Route 03/08/25 .COMPLEX #90 tabs paroxetine HCl 20 mg tablet See Rx Instructions .Route 03/08/25 .COMPLEX #90 tabs pravastatin 20 mg tablet See Rx Instructions .Route 03/08/25 .COMPLEX #90 tabs propranolol 10 mg tablet See Rx Instructions .Route 03/08/25 .COMPLEX #180 tabs omeprazole 20 mg capsule,delayed See Rx Instructions .Route 04/08/25 release .COMPLEX #90 caps ondansetron 4 mg disintegrating See Rx Instructions .Route 04/08/25 tablet .COMPLEX #30 tabs celecoxib 100 mg capsule 100 mg PO BID #60 caps 04/15/25 fluconazole 150 mg tablet 150 mg PO Q3D yeast vaginitis 2 05/10/25 doses #2 tabs sodium chloride-aloe vera nasal 1 applic topical Q1-2H PRN dry 05/10/25 gel ([place] Saline nasal gel) nasal passages #14.1 grams fluticasone propionate 50 1 spray intranasal BID #16 grams 05/11/25 mcg/actuation nasal spray,suspension (Allergy Relief (fluticasone)) amoxicillin 875 mg-potassium 1 tab PO BID #14 tabs 05/19/25 clavulanate 125 mg tablet Allergies Allergy/AdvReac Type Severity Reaction Status Date / Time aspirin Allergy Mild Unknown Verified 05/24/25 09:08 allergy reaction ibuprofen AdvReac Unknown Verified 05/24/25 09:08 allergy reaction PFSH <Ronaldo Sandoval MD - Last Filed: 05/27/25 06:59> [facility] Disclaimer: The information contained in this section may have been updated after the patient was seen, as this information can be updated by other users. Medical History Fibroadenoma of breast Breast mass, right Abnormal mammogram of right breast Skin yeast infection Rash and nonspecific skin eruption Breast cancer screening by mammogram Dysuria GE reflux COPD (chronic obstructive pulmonary disease) Edentulous Right knee pain Mood disorder Anemia Intellectual disability Hyperlipidemia Hypertension Surgical History History of cholecystectomy H/O: hysterectomy Family History Other Family history of cancer Family history of diabetes mellitus type II Family history of hypertension Social History Smoking Status: Current every day smoker alcohol intake: never substance use type: denies use current occupational status: disabled Travel in the last 8 weeks?: None Do you have a cough?: Yes Other Medical History Have you received the Pneumonia Vaccine: No <Ronaldo Sandoval MD - Last Filed: 05/27/25 06:59> ROS Obtained: Yes All systems reviewed & no additional complaints except as documented Physical Exam <Ronaldo Sandoval MD - Last Filed: 05/27/25 06:59> General General appearance: alert and in no apparent distress Head Head exam: atraumatic and normocephalic Eye Eye exam: Present normal appearance, PERRL and EOMI ENT ENT exam: Present normal oropharynx and normal external ear exam Neck Neck exam: Present normal inspection and full ROM Chest Chest inspection: Present normal inspection and symmetric chest wall rise; Absent tenderness Respiratory Respiratory exam: Present normal lung sounds bilaterally; Absent respiratory distress Cardiovascular Cardiovascular exam: Present regular rate and normal rhythm Abdominal Exam Abdominal exam: Present soft; Absent distention, tenderness or guarding Extremities Exam Extremities exam: Present normal inspection; Absent edema or joint swelling Back Exam Back exam: Present normal inspection; Absent tenderness Neurological Exam Neurological exam: Present alert and oriented X3; Absent motor sensory deficit Psychiatric Psychiatric exam: Present normal affect and normal mood Skin Skin exam: Present warm, dry and normal color Lymphatic Lymphatic Findings: no adenopathy Medical Decision Making <Ronaldo Sandoval MD - Last Filed: 05/27/25 06:59> Medical Records Medical records reviewed: Yes I reviewed the patient's medical records. Screening: Per USPSTF and CDC recommendations, given the prevalence of disease in our region, it is our hospital?s policy to screen for HIV and viral Hepatitis for all patients aged 18 and over and those with ongoing risk factors. Caesar Inquiry Pt receiving controlled substance: No Caesar was queried for this patient: No Vital Signs: 05/27/25 03:37 05/27/25 04:05 05/27/25 04:15 Temperature 98.1 F Temperature Source Oral Pulse Rate 89 86 Pulse Rate [Right Radial] 97 H Respiratory Rate 16 18 16 Blood Pressure Blood Pressure [Right Arm] 130/92 H Blood Pressure Mean Blood Pressure Mean [Right Arm] 104 Blood Pressure Source [Right Arm] Automatic Cuff Blood Pressure Position [Right Arm] Supine 02 Sat by Pulse Oximetry 97 97 98 Oxygen Delivery Method Room Air 05/27/25 04:30 05/27/25 05:00 05/27/25 05:00 Temperature Temperature Source Pulse Rate 103 H Pulse Rate [Right Radial] Respiratory Rate 18 24 Blood Pressure 115/95 H Blood Pressure [Right Arm] Blood Pressure Mean 100 Blood Pressure Mean [Right Arm] Blood Pressure Source [Right Arm] Blood Pressure Position [Right Arm] 02 Sat by Pulse Oximetry 95 Oxygen Delivery Method 05/27/25 05:15 05/27/25 05:31 05/27/25 06:00 Temperature Temperature Source Pulse Rate 83 86 Pulse Rate [Right Radial] Respiratory Rate 12 Blood Pressure 128/106 H 103/65 L Blood Pressure [Right Arm] Blood Pressure Mean 113 77 Blood Pressure Mean [Right Arm] Blood Pressure Source [Right Arm] Blood Pressure Position [Right Arm] 02 Sat by Pulse Oximetry 96 97 Oxygen Delivery Method Lab Data Lab results reviewed: Yes I reviewed the patient's lab results. Lab Results 05/27/25 03:30: WBC 9.0, RBC 3.98 L, Hgb 13.3, Hct 38.5, MCV 96.7, MCH 33.4 H, MCHC 34.5, RDW 12.5, Plt Count 331, MPV 9.4, Neut % (Auto) 67.4, Lymph % (Auto) 25.6, [place] % (Auto) 5.4, Eos % (Auto) 1.1, Baso % (Auto) 0.3, Neut # (Auto) 6.1, Lymph # (Auto) 2.3, [place] # (Auto) 0.5, Eos # (Auto) 0.1, Baso # (Auto) 0.0, PT 10.3, INR 0.92, APTT 26.6, D-Dimer 0.40, Sodium 137, Potassium 4.0, Chloride 109 H, Carbon Dioxide 21 L, Anion Gap 11.0, BUN 26 H, Creatinine 0.90, Estimated Creat Clear 115, Estimated GFR 69, Est GFR ( Amer) 83, Glucose 142 H, Calcium 9.6, Total Bilirubin 0.4, AST 30, ALT 37, Alkaline Phosphatase 96, Troponin I < 0.01, Total Protein 7.8, Albumin 4.4, Globulin 3.4 H, Albumin/Globulin Ratio 1.3 05/27/25 06:25: Troponin I < 0.01 05/27/25 03:30 05/27/25 03:30 Orders (Tests/Meds): ED MEDICATIONS Discontinued Medications Generic Name Dose Route Start Last Admin Trade Name Freq PRN Reason Stop Dose Admin Acetaminophen 1,000 mg 05/27/25 03:41 05/27/25 03:25 Acetaminophen 500mg Tab PO 05/27/25 03:42 1,000 mg ONCE ONE Administration ORDERS Category Date Time Status Chest XR -- portable [XR chest portable] Stat Exams 05/27/25 03:38 Completed Complete Blood Count Auto Diff Stat Lab 05/27/25 03:30 Completed Comprehensive Metabolic Panel Stat Lab 05/27/25 03:30 Completed D-Dimer Stat Lab 05/27/25 03:30 Completed PT/PTT Stat Lab 05/27/25 03:30 Completed Prothrombin Time INR Stat Lab 05/27/25 03:30 Completed Troponin I Q3H Lab 05/27/25 06:25 Completed Troponin I Q3H Lab 05/27/25 09:45 Ordered Troponin I Stat Lab 05/27/25 03:30 Completed ECG Data Tracing #1: I reviewed this ECG and interpreted as documented below: Sinus rhythm, rate of 96, no significant ST elevation, no evidence of arrhythmia ECG initial impression date: 05/27/25 ECG initial impression time: 03:03 HEART Score History (anamnesis): Moderately suspicious ECG: Normal Age: <45 years Risk factors: 1-2 risk factors Troponin: </= normal limit HEART Score: 2 Medical Decision Narrative: 40-year-old female with history of hypertension, hyperlipidemia, COPD presents chest pain and shortness of breath tonight, has been feeling generally sick for the last few days. History was obtained via interactive discussion with patient, chart review, EMS. On arrival, patient is afebrile, hemodynamically stable, satting appropriately, alert, oriented x4, GCS 15, moving all extremities spontaneously. Full physical exam performed and significant for clear lungs bilaterally, no abdominal tenderness Differential includes but is not limited to ACS, PE, pneumonia, COPD exacerbation, URI. Patient was given Tylenol, refused aspirin. Broad-spectrum labs ordered including troponin, D-dimer. Chest x-ray and EKG obtained. On re-evaluation, patient is sleeping comfortably Laboratory workup independently interpreted by me and significant for negative initial troponin, negative D-dimer, no significant electrolyte derangement. Imaging independently interpreted by me and significant for clear lungs bilaterally without focal opacity. See radiology read for full review of final results. At this time care handed off to oncoming physician pending second troponin. <Xi Madison MD - Last Filed: 05/27/25 07:26> Vital Signs: 05/27/25 03:37 05/27/25 04:05 05/27/25 04:15 Temperature 98.1 F Temperature Source Oral Pulse Rate 89 86 Pulse Rate [Right Radial] 97 H Respiratory Rate 16 18 16 Blood Pressure Blood Pressure [Right Arm] 130/92 H Blood Pressure Mean Blood Pressure Mean [Right Arm] 104 Blood Pressure Source [Right Arm] Automatic Cuff Blood Pressure Position [Right Arm] Supine 02 Sat by Pulse Oximetry 97 97 98 Oxygen Delivery Method Room Air 05/27/25 04:30 05/27/25 05:00 05/27/25 05:00 Temperature Temperature Source Pulse Rate 103 H Pulse Rate [Right Radial] Respiratory Rate 18 24 Blood Pressure 115/95 H Blood Pressure [Right Arm] Blood Pressure Mean 100 Blood Pressure Mean [Right Arm] Blood Pressure Source [Right Arm] Blood Pressure Position [Right Arm] 02 Sat by Pulse Oximetry 95 Oxygen Delivery Method 05/27/25 05:15 05/27/25 05:31 05/27/25 06:00 Temperature Temperature Source Pulse Rate 83 86 Pulse Rate [Right Radial] Respiratory Rate 12 Blood Pressure 128/106 H 103/65 L Blood Pressure [Right Arm] Blood Pressure Mean 113 77 Blood Pressure Mean [Right Arm] Blood Pressure Source [Right Arm] Blood Pressure Position [Right Arm] 02 Sat by Pulse Oximetry 96 97 Oxygen Delivery Method Lab Data Lab Results 05/27/25 03:30: WBC 9.0, RBC 3.98 L, Hgb 13.3, Hct 38.5, MCV 96.7, MCH 33.4 H, MCHC 34.5, RDW 12.5, Plt Count 331, MPV 9.4, Neut % (Auto) 67.4, Lymph % (Auto) 25.6, [place] % (Auto) 5.4, Eos % (Auto) 1.1, Baso % (Auto) 0.3, Neut # (Auto) 6.1, Lymph # (Auto) 2.3, [place] # (Auto) 0.5, Eos # (Auto) 0.1, Baso # (Auto) 0.0, PT 10.3, INR 0.92, APTT 26.6, D-Dimer 0.40, Sodium 137, Potassium 4.0, Chloride 109 H, Carbon Dioxide 21 L, Anion Gap 11.0, BUN 26 H, Creatinine 0.90, Estimated Creat Clear 115, Estimated GFR 69, Est GFR ( Amer) 83, Glucose 142 H, Calcium 9.6, Total Bilirubin 0.4, AST 30, ALT 37, Alkaline Phosphatase 96, Troponin I < 0.01, Total Protein 7.8, Albumin 4.4, Globulin 3.4 H, Albumin/Globulin Ratio 1.3 05/27/25 06:25: Troponin I < 0.01 Orders (Tests/Meds): ED MEDICATIONS Discontinued Medications Generic Name Dose Route Start Last Admin Trade Name Freq PRN Reason Stop Dose Admin Acetaminophen 1,000 mg 05/27/25 03:41 05/27/25 03:25 Acetaminophen 500mg Tab PO 05/27/25 03:42 1,000 mg ONCE ONE Administration ORDERS Category Date Time Status Chest XR -- portable [XR chest portable] Stat Exams 05/27/25 03:38 Completed Complete Blood Count Auto Diff Stat Lab 05/27/25 03:30 Completed Comprehensive Metabolic Panel Stat Lab 05/27/25 03:30 Completed D-Dimer Stat Lab 05/27/25 03:30 Completed PT/PTT Stat Lab 05/27/25 03:30 Completed Prothrombin Time INR Stat Lab 05/27/25 03:30 Completed Troponin I Q3H Lab 05/27/25 06:25 Completed Troponin I Q3H Lab 05/27/25 09:45 Ordered Troponin I Stat Lab 05/27/25 03:30 Completed HEART Score HEART Score: 2 Medical Decision Narrative: 40-year-old female with history of hypertension, hyperlipidemia, COPD presents chest pain and shortness of breath tonight, has been feeling generally sick for the last few days. History was obtained via interactive discussion with patient, chart review, EMS. On arrival, patient is afebrile, hemodynamically stable, satting appropriately, alert, oriented x4, GCS 15, moving all extremities spontaneously. Full physical exam performed and significant for clear lungs bilaterally, no abdominal tenderness Differential includes but is not limited to ACS, PE, pneumonia, COPD exacerbation, URI. Patient was given Tylenol, refused aspirin. Broad-spectrum labs ordered including troponin, D-dimer. Chest x-ray and EKG obtained. On re-evaluation, patient is sleeping comfortably Laboratory workup independently interpreted by me and significant for negative initial troponin, negative D-dimer, no significant electrolyte derangement. Imaging independently interpreted by me and significant for clear lungs bilaterally without focal opacity. See radiology read for full review of final results. At this time care handed off to oncoming physician pending second troponin. [place]: I assumed care of patient at 7 AM. At this time patient has improvement of symptoms second troponin negative agreeable to discharge at this time. Procedures <Ronaldo Sandoval MD - Last Filed: 05/27/25 06:59> Risk/Benefits of Procedure(s) Were Explained: Yes Critical Care <Ronaldo Sandoval MD - Last Filed: 05/27/25 06:59> Critical Care Time Critical Care Time: No
[2025-05-27 07:23] LABS: Troponin I < 0.01 ng/ml (0.00-0.034)
== END 2025-05-27 07:48 | disposition home or self-care (01) ==
PROVIDERS: Emergency Provider Emergency Medicine; PCP Family Medicine
DX: R07.9 Chest pain, unspecified (principal); J44.9 Chronic obstructive pulmonary disease, unspecified; F17.210 Nicotine dependence, cigarettes, uncomplicated; I10 Essential (primary) hypertension; E78.5 Hyperlipidemia, unspecified
CPT/HCPCS: 71045; 80053; 84484; 85025; 85378; 85610; 85730; 93005; 99284; 99285

== ENCOUNTER 2025-06-01 14:32 | Outpatient (RCR) | payer MEDICARE, OTHER, SELFPAY ==
--- NOTE | 2025-06-01 15:51 | HMH.PTOPEV ---
PT Evaluation Rehab PT Outpatient Evaluation Start: 06/01/25 15:36 Freq: Status: Active Protocol: Document 06/01/25 15:36 OTILIA (Rec: 06/01/25 15:51 PHOADELAIDE [id number]) E-signed By Alton Sanchez, PT Outpatient Therapy Subjective History Subjective History This is the initial PT eval for Rosalia Michaels, 40 yowf who presents with c/o continued R knee pain ~7 wks S/P R knee MMR. She reports pain is constant, but worse with bending her knee or walking. She presents using a cane for ambulation this date with antalgic gait pattern on the R LE. She reports she has no been doing much exercise at home, but she is agreeable to a HEP. She has PMH of TAD, COPD, and unknown specific intellectual disability. Chief Complaint Pain,Stiff Symptom Type Ache,Throb Symptoms Relieved By Rest/Positioning Symptoms Aggravated Physical Activity,Walking By Prior Functional None Limitations Current Functional Housework,Sleeping,Standing,Squatting,Recreation Limitations Activity,Walking,Stairs Symptom Description Constant but Variable Level of pain today 8 (0-10) Pain scale - at its 10 worst (0-10) Hip/Knee Eval Gait Observation General Gait Pattern Antalgic Gait Observation Assistive Device Assistive Devices Straight Cane Palpation Tenderness right Knee Palpation Tenderness Finding Knee Palpation med and lat jt line 2/4 Overall Comment MMT Hip Flexion Strength 4 Good Grade Hip Abduction 4 Good Strength Grade Hip Adduction 4 Good Strength Grade Hip Extension 4 Good Strength Grade Knee Extension 4 Good Strength Grade Knee Flexion 4 Good Strength Grade ROM Knee Extension 0 Active Range of Motion (degrees) Knee Flexion Active 0-110 Range of Motion ( degrees) Lower Extremity Functional Index Activities Today, do you or would you have any difficulty at all with: a.Any of your usual A little bit of difficulty work, housework or school activities b. Your usual Quite a bit of difficulty hobbies, recreational or sporting activities c. Getting into or Moderate difficulty out of the bath d. Walking between Moderate difficulty rooms e. Putting on your No difficulty shoes or socks f. Squatting Extreme difficulty or unable to perform activity g. Lifting an object Quite a bit of difficulty , like a bag of groceries from the floor h. Performing light Moderate difficulty activities around your home i. Performing heavy Extreme difficulty or unable to perform activity activities around your home j. Getting into or Moderate difficulty out of a car k. Walking 2 blocks Extreme difficulty or unable to perform activity l. Walking a mile Extreme difficulty or unable to perform activity m. Going up or down Quite a bit of difficulty 10 stairs (about 1 flight of stairs) n. Standing for 1 Extreme difficulty or unable to perform activity hour o. Sitting for 1 Moderate difficulty hour p. Running on even Extreme difficulty or unable to perform activity ground q. Running on uneven Extreme difficulty or unable to perform activity ground r. Making sharp Extreme difficulty or unable to perform activity turns while running fast s. Hopping Extreme difficulty or unable to perform activity t. Rolling over in Moderate difficulty bed LEFI Score Lower Extremity 22 Functional Index Score Outpatient Therapy Assessment Impairments Problems/ Palpation Tenderness,Impaired Range of Motion,Impaired Impairmments Strength,Impaired Endurance,Impaired Transfers,Impaired Gait Pattern,Impaired Walking,Impaired Standing, Impaired Shower/Bathing,Impaired Household Care, Impaired Stair Climbing,Impaired Incline Stepping, Impaired Stepping on Uneven Surface,Impaired Squatting, Impaired Recreational Activities,Subjective C/O Pain, Impaired Self Care/Self Management Prognosis Rehab Potential Good Comment Skilled therapy is indicated to reduce pain, improve strength throughout the R LE, increase ability to ambulate, and improve ability to perform all ADLs in order to return pt to [facility]. Clinical Impression Consistent with Yes Diagnosis PT Patient Goals PT Patient Goals PT Short Term In 2 wks pt will complete these goals in order to aid Patient Goals improvement in function specifically with all ADLs: 1) Decrease pain in the R knee to 6/10 in order to facilitate improved mobility 2) Ambulate with minimal antalgic gait pattern with least restrictive AD PT [employer] Patient In 6 wks pt will complete these goals in order to aid Goals improvement in function specifically with all ADLs: 1) Decrease pain in the R knee to 3/10 at worst in order to facilitate improved mobility 2) Ambulate without antalgic gait pattern with least restrictive AD 3) Increase Strength in R LE to 4+/5 throughout at least 4) Increase LEFS score to 55 or more Outpatient Therapy Plan of Care Treatment Plan May Include Therapeutic Exercise Yes Including Home Exercise Program Manual Therapy Yes Techniques Neuromuscular Re- Yes education Therapeutic Yes Activities to Return to Previous Functional/Work Level Gait Training Yes ADL/Self Care Yes Education Electrical Yes Stimulation Orthotics/Bracing/ Yes Splinting Vasopneumatic Yes Compression Pump Eval/Re-Eval Yes Frequency Times per week 2 Duration Number of Weeks 6 Addendums This patient is a No candidate for social or vocational rehab ? Patient/Guardian Yes verbally acknowledges understanding of treatment program and consents to further treatment? Patient/Guardian Yes verbally acknowledges understanding of diagnosis, prognosis and goals for treatment? Eval Complexity PT Charges 23396 - High Complexity Shoulder/Elbow Eval Shoulder Objective Measurements Elbow Objective Measurements PHYSICIAN CERTIFICATION: I certify the specified therapy services for Rosalia Michaels are required, authorized, and reviewed every 30 days.
== END 2025-06-01 23:59 | disposition home or self-care (01) ==
LOC: PT 14:32
PROVIDERS: PCP Family Medicine; Visit Provider Orthopaedic Surgery
DX: S83.231D Complex tear of medial meniscus, current injury, right knee, subsequent encounter (principal)
CPT/HCPCS: 97163